=== PATIENT | female | born 1930 | race Native Hawaiian/Other Pacific Islander ===

== ENCOUNTER 2017-02-15 04:58 | Inpatient (IN) | payer OTHER, MEDICARE ==
[2017-02-15] VITALS (20 sets, daily range): BP systolic 110–202; BP diastolic 58–135; TEMP 96.4–99.5; Ht 167.6 cm; Wt 46.0 kg
[~2017-02-15] VITALS: Ht 167.6 cm; Wt 46.0 kg
[~2017-02-15 04:58] MED LIST: ASPIRIN 81 LOW81 MG PO; BETAGAN OP; CLARITIN10 MG PO; DONE5TAB PO; DULO30CA PO; FISH OIL1 C10 PO; HYDR5TAB9 PO; LAXATIVE1 TAB PO; MECLIZINE25 MG PO; METO25TA2 PO; MIRALAX3350 N1 PO; MULTI VITAMIN A1 TAB PO; SEROQUEL25 MG PO; SOTA80TA2 PO; THIA100T8 PO; ZANTAC300 MG PO
[2017-02-15 05:32] LABS: PLATELET COUNT 329 K/uL (152-353)
[2017-02-15 05:45] LABS: POTASSIUM 3.7 mmol/L (3.6-5.2)
[2017-02-16] VITALS (18 sets, daily range): BP systolic 145–195; BP diastolic 60–93; TEMP 97–99
[2017-02-16 06:05] LABS: PLATELET COUNT 251 K/uL (152-353)
[2017-02-16 06:20] LABS: POTASSIUM 3.2 mmol/L (3.6-5.2)
[2017-02-17] VITALS (10 sets, daily range): BP systolic 176–206; BP diastolic 80–96; TEMP 98–99
[2017-02-17 13:30] LABS: PLATELET COUNT 253 K/uL (152-353)
[2017-02-17 13:39] LABS: SODIUM 131 mmol/L (136-145)
== END 2017-02-17 16:10 | disposition other institution (70) | DRG 65 ==
LOC: ED 04:58 → ICU 06:00
PROVIDERS: Emergency Medicine
DX: I63.512 Cerebral infarction due to unspecified occlusion or stenosis of left middle cerebral artery (principal); N39.0 Urinary tract infection, site not specified; G40.89 Other seizures; I12.9 Hypertensive chronic kidney disease with stage 1 through stage 4 chronic kidney disease, or unspecified chronic kidney disease; N18.3 Chronic kidney disease, stage 3 (moderate); I48.91 Unspecified atrial fibrillation; E11.69 Type 2 diabetes mellitus with other specified complication
CPT/HCPCS: 36415; 51702; 80053; 81000; 82175; 82550; 83735; 84484; 85027; 93005; 94760; 96361; 96365; 96375; 99285; J0744; J1160; J1165; J1630; J1650; J1940; J2060; J3411; J3490